=== PATIENT | female | born 1990 ===

== ENCOUNTER 2021-11-28 19:55 | Inpatient (IN) | payer SELFPAY ==
[2021-11-28] MEDS ORDERED: LOPERAMIDE 2 MG CAP PO PRN (23:33)
[2021-11-28] MEDS ORDERED: LIDOCAINE (2%) 20 MG/1 ML VIAL 20 ML MDV INFILTRATI ONE (23:33)
[2021-11-28] MEDS ORDERED: miSOPROStol 200 MCG TAB PR PRN (23:33)
[2021-11-28] MEDS ORDERED: MINERAL OIL 30 ML ORAL LIQD PO PRN (23:33)
[2021-11-28] MEDS ORDERED: ACETAMINOPHEN 325 MG TAB PO PRN (23:33)
[2021-11-28] MEDS ORDERED: OXYTOCIN 10 UNIT/1 ML INJ IM PRN (23:33)
[2021-11-28] MEDS ORDERED: METHYLERGONOVINE MALEATE 0.2 MG/ML VIAL IM PRN (23:33)
[2021-11-28] MEDS ORDERED: BUTORPHANOL 2 MG/1 ML INJ IV PRN ×2 (23:33)
[2021-11-28] MEDS ORDERED: CARBOPROST TROMETHAMINE 250 MCG/1 ML INJ IM PRN (23:33)
[2021-11-28] MEDS ORDERED: ePHEDrine SULFATE 50 MG/1 ML INJ IV PRN (23:33)
[2021-11-28] MEDS ORDERED: TERBUTALINE 1 MG/1 ML INJ SUB-Q PRN (23:33)
[2021-11-28 23:45] LABS: Hematocrit 34.9 % (30.3-42.9); Hemoglobin 11.2 gm/dl (10.1-14.3); Mean Corpuscular HGB Conc 32 % (30-34); Mean Corpuscular Volume 81 fl (79-97); Platelet Count 140 K/mm3 (140-440); Red Blood Count 4.29 M/mm3 (3.65-5.03); Red Cell Distribution Width 16.3 % (13.2-15.2)
[2021-11-28] MEDS ORDERED: OXYTOCIN DRIP 30 UNITS/500 ML BAG IV SCH ×2 (23:45)
--- NOTE | 2021-11-29 00:17 | Ultrasound Report ---
US OB BPP wo non-stress, US OB limited INDICATION / CLINICAL INFORMATION: BP. COMPARISON: None available. FINDINGS: Single live intrauterine . measurements correspond to a gestational age of 4 0 weeks and 3 days. Estimated weight measures 3750 g. BREATHING MOVEMENT = 2 GROSS BODY MOVEMENT = 2 TONE = 2 QUALITATIVE AMNIOTIC FLUID VOLUME = 2 TOTAL BIOPHYSICAL SCORE = 8/8 AMNIOTIC FLUID INDEX (cm) = 10.1 PRESENTATION: Cephalic HEART RATE (beats per minute): 141 IMPRESSION: Single live intrauterine in cephalic presentation. Ultrasound age of 40 weeks a nd 3 days. Estimated weight of 3750 g. No significant abnormality. 1. biophysical profile = 8/8 2. Amniotic fluid index is within normal limits, measuring 10.1 cm. Signer Name: Yevgeniy Trejo MD Signed: 11/29/2021 12:13 AM Workstation Name: [id number]
--- NOTE | 2021-11-29 01:10 | History and Physical Report ---
History of Present Illness Date of examination: 11/28/21 Date of admission: 11/28/2021 Chief complaint: Induction of labor History of present illness: 31-year-old primigravida at 40-3/7 weeks gestation presents to OB triage reporting cramping. There is no leakage of fluid. There was some spotting. There is good movement. The patient was scheduled for induction of labor this evening secondary to being post due date, large for gestational age, and history of polyhydramnios. Biophysical profile performed this evening was 8 out of 8. Estimated weig ht was in the 55th percentile with an amniotic fluid index of 10 cm. Cervical exam was fingertip dilated. In lieu of the patient's cramping and spotting, she is now admitted to labor and delivery for induction of labor. The risks, alternatives, and benefits were explained the patient. She wished to proceed with induction of labor. Past History Past Medical History: no pertinent history Past Surgical History: no surgical history Family/Genetic History: none Social history: no significant social history - Obstetrical History Expected Date of Delivery: 11/25/21 Actual Gestation: 40 Week(s) 4 Day(s) : 1 Para: 0 Medications and Allergies Allergies Allergy/AdvReac Type Severity Reaction Status Date / Time No Known Allergies Allergy Verified 11/28/21 23:36 Active Meds: Active Medications Acetaminophen (Acetaminophen 325 Mg Tab) 650 mg PO Q4H PRN PRN Reason: Pain, Mild (1-3) Butorphanol Tartrate (Butorphanol 2 Mg/1 Ml Inj) 1 mg IV Q2H PRN PRN Reason: Pain, Moderate(4-6) LABOR PAIN Butorphanol Tartrate (Butorphanol 2 Mg/1 Ml Inj) 2 mg IV Q2H PRN PRN Reason: Pain , Severe (7-10) Carboprost Tromethamine (Carboprost Tromethamine 250 Mcg/1 Ml Inj) 250 mcg IM ONCE PRN PRN Reason: Uterine Bleeding Ephedrine Sulfate (Ephedrine Sulfate 50 Mg/1 Ml Inj) 10 mg IV Q2M PRN PRN Reason: Hypotension Fentanyl (Fentanyl 100 Mcg/2 Ml Inj) 100 mcg IV Q2H PRN PRN Reason: Pain,Severe (7-10) LABOR PAIN Oxytocin/Sodium Chloride (Pitocin/Ns 30 Unit/500ml) 30 units in 500 mls @ 2 mls/hr IV TITR KENNY; Protocol Lactated Ringer's (Lactated Ringers) 1,000 mls @ 125 mls/hr IV DIRECT KENNY Oxytocin/Sodium Chloride (Pitocin/Ns 30 Unit/500ml) 30 units in 500 mls @ 40 mls/hr IV TITR KENNY; Protocol Loperamide HCl (Loperamide 2 Mg Cap) 2 mg PO ONCE PRN PRN Reason: give with Hemabate Methylergonovine Maleate (Methylergonovine Maleate 0.2 Mg/Ml Vial) 0.2 mg IM ONCE PRN PRN Reason: Uterine Bleeding Mineral Oil (Mineral Oil 30 Ml Oral Liqd) 30 ml PO QHS PRN PRN Reason: Constipation Misoprostol (Misoprostol 200 Mcg Tab) 800 mcg ME ONCE PRN PRN Reason: Uterine Bleeding Oxytocin (Oxytocin 10 Unit/1 Ml Inj) 10 unit IM ONCE PRN PRN Reason: Uterine Bleeding Terbutaline Sulfate (Terbutaline 1 Mg/1 Ml Inj) 0.25 mg SUB-Q ONCE PRN PRN Reason: Hyperstimulation/Hypertonicity Review of Systems All systems: negative - Vital Signs Vital signs: Vital Signs Pulse BP Pulse Ox 100 H 122/75 98 11/28/21 20:19 11/28/21 20:19 11/28/21 20:19 Temp Pulse Resp BP Pulse Ox 97.4 F L 84 122/75 99 11/28/21 20:39 11/29/21 01:05 11/28/21 20:19 11/29/21 01:05 - Physical Exam Breasts: Positive: normal Cardiovascular: Regular rate Lungs: Positive: Normal air movement Abdomen: Positive: normal appearance Genitourinary (Female): Positive: normal external genitalia, normal perenium Vulva: both: normal Vagina: Positive: normal moisture Uterus: Positive: enlarged Adnexa: both: normal Anus/Rectum: Positive: normal perianal skin Extremities: Positive: normal Deep Tendon Reflex Grade: Normal +2 - Obstetrical FHR: category 1 Cervical Dilatation: 0.5 Cervical Effacement Percentage: 50 station: -3 Uterine Contraction Pattern: Absent Results Result Diagrams: 11/28/21 23:18 Abnormal lab results 11/28/21 Range/Units 23:18 MCH 26 L (28-32) pg RDW 16.3 H (13.2-15.2) % All other labs normal. Ultrasound: report reviewed (Biophysical profile= 02/17. OB ultrasound limited= single live intrauterine . Vertex. Estimated weight is 3750 g. This is in the 55th percentile. Amniotic fluid index is 10.1 cm.) Assessment and Plan - Patient Problems (1) 40 weeks gestation of Current Visit: Yes Status: Acute Plan to address problem: care is up-to-date at [facility]. She had an abnormal 1 hour glucose tolerance test. 3-hour glucose tolerance test was normal. She is GBS negative. (2) Postmaturity , 40-42 weeks gestation Current Visit: Yes Status: Acute Plan to address problem: As this patient is post due date, induction of labor was recommended. (3) Large for gestational age fetus Current Visit: Yes Status: Acute Plan to address problem: Although this patient's record states that her fetus is large for gestational age, ultrasound today revealed that the estimated weight is in the 55th percentile. Hemoglobin A1c is within normal limits today. Accu-Chek is normal. (4) Encounter for induction of labor Current Visit: Yes Status: Acute Plan to address problem: Ripen cervix with oral Cytotec and Cook's catheter.
[2021-11-29] MEDS: miSOPROStol 25 MCG TAB PO SCH ×2 (02:20→06:25)
[2021-11-29] MEDS: fentaNYL 100 MCG/2 ML INJ IV PRN (04:48)
[2021-11-29] MEDS ORDERED: BUPIVACAINE/PF (0.25%) 2.5 MG/ML 10 ML VIAL INFILTRATI ONE (08:05)
[2021-11-29] MEDS ORDERED: ePHEDrine SULFATE 50 MG/1 ML INJ IV PRN (09:00)
--- NOTE | 2021-11-29 09:05 | Anesthesia Consultation ---
Anesthesia Consult and Med Hx Date of service: 11/29/21 - Airway Anesthetic Teeth Evaluation: Poor Mallampati Class: Class II Intubation Access Assessment: Probably Good - Pulmonary Exam CTA: Yes - Cardiac Exam Cardiac Exam: RRR - Pre-Operative Health Status ASA Pre-Surgery Classification: ASA2 Proposed Anesthetic Plan: Epidural - Pulmonary Hx Smoking: No Hx Asthma: No Hx Respiratory Symptoms: No Hx Sleep Apnea: No - Cardiovascular System Hx Hypertension: No - Central Nervous System Hx Seizures: No Hx Back Pain: No Hx Psychiatric Problems: No - Gastrointestinal Hx Gastroesophageal Reflux Disease: No - Endocrine Hx Renal Disease: No Hx Hypothyroidism: No Hx Hyperthyroidism: No - Hematic Hx Anemia: No Hx Sickle Cell Disease: No - Other Systems Hx Alcohol Use: No Hx Substance Use: No Hx Obesity: Yes
--- NOTE | 2021-11-29 09:07 | Progress Note ---
Labor Epidural - Labor Epidural Start Time: 08:20 Stop Time: 08:38 Performed by:: EMETERIO HUGHES Procedure: Patient is requesting a laboring epidural for laboring pain. Patient IDed, H&P reviewed, all questions and concerns were answered, and consent was signed. Timeout was performed at bedside. Patient in sitting position. Sterile prep and drape was performed. [3] ml of 1% lidocaine skin wheal at L[3]- L [4]. 17- gauge Tuohy epidural needle was advanced to loss of resistance with saline technique 8cm x 1attempts. Single dural perforation via 25 guage spinal needle placed through the shaft of Epidural needle. Positive CSF via spinal needle. Negative CSF negative blood via Epidural needle. Epidural catheter advanced to [12] centimeters. [NEGATIVE] Aspiration [NEGATIVE] test dose. Negative Paresthesia. Sterile dressing applied. Patient tolerated procedure.
[2021-11-29] MEDS ORDERED: NALOXONE 2 MG/2 ML INJ IV PRN (09:30)
[2021-11-29] MEDS: fentaNYL-BUPIV 2 MCG/ML-0.125% 200 MCG/100 ML BAG EPIDURAL SCH ×2 (09:48→18:25)
--- NOTE | 2021-11-29 10:57 | Event Note ---
Assumed care of patient at 08:00 today. NAEEM 460/-2/BBCHASE.
[2021-11-29] MEDS: LACTATED RINGERS 1,000 ML IV SCH ×2 (11:05→19:02)
--- NOTE | 2021-11-29 14:04 | Event Note ---
Date: 11/29/21 SVE .
--- NOTE | 2021-11-29 16:21 | Event Note ---
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 Will augment labor with Pitocin. Discussed Pitocin augmentation with patient and she consented to Pitocin augmentation of labor. Informed nurse of need to start Pitocin. Orders put in. Reassuring FHR tracing.
[2021-11-29] MEDS ORDERED: OXYTOCIN DRIP 30 UNITS/500 ML BAG IV SCH (17:00)
--- NOTE | 2021-11-29 17:02 | Progress Note ---
Subjective - Subjective Date of service: 11/29/21 Interval history: AROM CLEAR FLUID cervix 7cm/90/-2 +ve polyhydramnios FHT 130 BPM baseline, moderate variability [place]: Q2 minutes A: active phase P; AROM no complications 7cm start pitocin per protocol expect Maternal/ status reassuring Beronica Monroe MD Objective - Vital Signs Vital Signs: Vital Signs - 12hr 11/29/21 11/29/21 11/29/21 05:01 05:06 05:11 Temperature Pulse Rate 89 88 85 Respiratory Rate Blood Pressure Blood Pressure [Right] O2 Sat by Pulse 97 97 98 Oximetry 11/29/21 11/29/21 11/29/21 05:16 05:21 05:26 Temperature Pulse Rate 85 82 76 Respiratory Rate Blood Pressure Blood Pressure [Right] O2 Sat by Pulse 99 98 99 Oximetry 11/29/21 11/29/21 11/29/21 05:31 05:36 05:41 Temperature Pulse Rate 89 97 H 94 H Respiratory Rate Blood Pressure Blood Pressure [Right] O2 Sat by Pulse 99 99 99 Oximetry 11/29/21 11/29/21 11/29/21 05:46 05:51 05:56 Temperature Pulse Rate 81 85 91 H Respiratory Rate Blood Pressure Blood Pressure [Right] O2 Sat by Pulse 100 99 100 Oximetry 11/29/21 11/29/21 11/29/21 06:01 06:06 06:11 Temperature Pulse Rate 92 H 104 H 94 H Respiratory Rate Blood Pressure Blood Pressure [Right] O2 Sat by Pulse 99 98 98 Oximetry 11/29/21 11/29/21 11/29/21 06:16 06:21 06:26 Temperature Pulse Rate 100 H 85 100 H Respiratory Rate Blood Pressure Blood Pressure [Right] O2 Sat by Pulse 98 98 97 Oximetry 11/29/21 11/29/21 11/29/21 06:31 06:36 06:41 Temperature Pulse Rate 99 H 86 86 Respiratory Rate Blood Pressure Blood Pressure [Right] O2 Sat by Pulse 97 96 97 Oximetry 11/29/21 11/29/21 11/29/21 06:46 06:51 06:56 Temperature Pulse Rate 84 81 82 Respiratory Rate Blood Pressure Blood Pressure [Right] O2 Sat by Pulse 97 97 97 Oximetry 11/29/21 11/29/21 11/29/21 07:01 07:06 07:11 Temperature Pulse Rate 90 90 76 Respiratory Rate Blood Pressure Blood Pressure [Right] O2 Sat by Pulse 97 97 98 Oximetry 11/29/21 11/29/21 11/29/21 07:16 07:21 07:26 Temperature Pulse Rate 83 90 80 Respiratory Rate Blood Pressure Blood Pressure [Right] O2 Sat by Pulse 98 99 98 Oximetry 11/29/21 11/29/21 11/29/21 07:31 07:42 07:43 Temperature 98.7 F Pulse Rate 86 87 86 Respiratory 20 Rate Blood Pressure Blood Pressure 120/76 [Right] O2 Sat by Pulse 98 99 98 Oximetry 11/29/21 11/29/21 11/29/21 07:47 07:52 07:57 Temperature Pulse Rate 94 H 86 91 H Respiratory Rate Blood Pressure 120/76 Blood Pressure [Right] O2 Sat by Pulse 99 98 97 Oximetry 11/29/21 11/29/21 11/29/21 08:02 08:07 08:12 Temperature Pulse Rate 89 91 H 89 Respiratory Rate Blood Pressure Blood Pressure [Right] O2 Sat by Pulse 99 98 97 Oximetry 11/29/21 11/29/21 11/29/21 09:47 09:49 09:51 Temperature Pulse Rate 83 87 78 Respiratory Rate Blood Pressure 105/65 107/68 108/69 Blood Pressure [Right] O2 Sat by Pulse Oximetry 11/29/21 11/29/21 11/29/21 09:52 09:53 09:55 Temperature Pulse Rate 84 90 81 Respiratory Rate Blood Pressure 102/65 107/68 Blood Pressure [Right] O2 Sat by Pulse 100 Oximetry 11/29/21 11/29/21 11/29/21 09:57 09:59 10:02 Temperature Pulse Rate 80 86 77 Respiratory Rate Blood Pressure 112/68 105/63 119/68 Blood Pressure [Right] O2 Sat by Pulse 100 98 Oximetry 11/29/21 11/29/21 11/29/21 10:03 10:05 10:07 Temperature Pulse Rate 82 88 77 Respiratory Rate Blood Pressure 109/64 100/61 Blood Pressure [Right] O2 Sat by Pulse 99 Oximetry 11/29/21 11/29/21 11/29/21 10:08 10:10 10:11 Temperature Pulse Rate 76 103 H 80 Respiratory Rate Blood Pressure 111/66 111/62 109/63 Blood Pressure [Right] O2 Sat by Pulse Oximetry 11/29/21 11/29/21 11/29/21 10:12 10:14 10:15 Temperature Pulse Rate 86 91 H 76 Respiratory Rate Blood Pressure 111/61 111/66 Blood Pressure [Right] O2 Sat by Pulse 98 Oximetry 11/29/21 11/29/21 11/29/21 10:17 10:19 10:21 Temperature Pulse Rate 80 77 75 Respiratory Rate Blood Pressure 116/72 114/72 113/71 Blood Pressure [Right] O2 Sat by Pulse 100 Oximetry 11/29/21 11/29/21 11/29/21 10:22 10:23 10:25 Temperature Pulse Rate 79 82 81 Respiratory Rate Blood Pressure 112/68 105/66 Blood Pressure [Right] O2 Sat by Pulse 99 Oximetry 11/29/21 11/29/21 11/29/21 10:27 10:32 10:37 Temperature Pulse Rate 76 81 85 Respiratory Rate Blood Pressure 117/72 Blood Pressure [Right] O2 Sat by Pulse 100 100 99 Oximetry 11/29/21 11/29/21 11/29/21 10:42 10:47 10:52 Temperature Pulse Rate 85 80 80 Respiratory Rate Blood Pressure Blood Pressure [Right] O2 Sat by Pulse 100 100 100 Oximetry 11/29/21 11/29/21 11/29/21 10:57 11:01 11:02 Temperature Pulse Rate 83 80 85 Respiratory Rate Blood Pressure 119/69 Blood Pressure [Right] O2 Sat by Pulse 100 100 Oximetry 11/29/21 11/29/21 11/29/21 11:07 11:12 11:17 Temperature Pulse Rate 97 H 91 H 76 Respiratory Rate Blood Pressure Blood Pressure [Right] O2 Sat by Pulse 100 100 100 Oximetry 11/29/21 11/29/21 11/29/21 11:22 11:27 11:31 Temperature Pulse Rate 87 86 84 Respiratory Rate Blood Pressure 118/66 Blood Pressure [Right] O2 Sat by Pulse 100 100 Oximetry 11/29/21 11/29/21 11/29/21 11:32 11:37 11:42 Temperature Pulse Rate 83 79 86 Respiratory Rate Blood Pressure Blood Pressure [Right] O2 Sat by Pulse 99 99 100 Oximetry 11/29/21 11/29/21 11/29/21 11:47 11:52 11:57 Temperature Pulse Rate 85 79 83 Respiratory Rate Blood Pressure Blood Pressure [Right] O2 Sat by Pulse 100 100 100 Oximetry 11/29/21 11/29/21 11/29/21 12:01 12:02 12:07 Temperature Pulse Rate 75 75 76 Respiratory Rate Blood Pressure 123/76 Blood Pressure [Right] O2 Sat by Pulse 100 100 Oximetry 11/29/21 11/29/21 11/29/21 12:12 12:17 12:22 Temperature Pulse Rate 77 77 82 Respiratory Rate Blood Pressure Blood Pressure [Right] O2 Sat by Pulse 99 99 100 Oximetry 11/29/21 11/29/21 11/29/21 12:27 12:31 12:32 Temperature Pulse Rate 84 83 85 Respiratory Rate Blood Pressure 113/71 Blood Pressure [Right] O2 Sat by Pulse 99 99 Oximetry 11/29/21 11/29/21 11/29/21 12:37 12:42 12:47 Temperature Pulse Rate 97 H 97 H 86 Respiratory Rate Blood Pressure Blood Pressure [Right] O2 Sat by Pulse 100 100 99 Oximetry 11/29/21 11/29/21 11/29/21 12:52 12:57 13:00 Temperature Pulse Rate 84 88 80 Respiratory Rate Blood Pressure 111/70 Blood Pressure [Right] O2 Sat by Pulse 100 99 Oximetry 11/29/21 11/29/21 11/29/21 13:02 13:07 13:12 Temperature Pulse Rate 88 84 84 Respiratory Rate Blood Pressure Blood Pressure [Right] O2 Sat by Pulse 99 100 99 Oximetry 11/29/21 11/29/21 11/29/21 13:17 13:22 13:27 Temperature Pulse Rate 103 H 81 87 Respiratory Rate Blood Pressure Blood Pressure [Right] O2 Sat by Pulse 99 99 99 Oximetry 11/29/21 11/29/21 11/29/21 13:31 13:32 13:37 Temperature Pulse Rate 97 H 109 H 85 Respiratory Rate Blood Pressure 124/72 Blood Pressure [Right] O2 Sat by Pulse 93 100 Oximetry 11/29/21 11/29/21 11/29/21 13:42 13:47 13:52 Temperature Pulse Rate 93 H 83 87 Respiratory Rate Blood Pressure Blood Pressure [Right] O2 Sat by Pulse 99 99 100 Oximetry 11/29/21 11/29/21 11/29/21 13:57 14:01 14:02 Temperature Pulse Rate 98 H 80 84 Respiratory Rate Blood Pressure 117/73 Blood Pressure [Right] O2 Sat by Pulse 100 98 Oximetry 11/29/21 11/29/21 11/29/21 14:07 14:12 14:17 Temperature Pulse Rate 100 H 86 95 H Respiratory Rate Blood Pressure Blood Pressure [Right] O2 Sat by Pulse 99 99 98 Oximetry 11/29/21 11/29/21 11/29/21 14:22 14:27 14:31 Temperature Pulse Rate 94 H 86 82 Respiratory Rate Blood Pressure 128/76 Blood Pressure [Right] O2 Sat by Pulse 99 100 Oximetry 11/29/21 11/29/21 11/29/21 14:32 14:37 14:42 Temperature Pulse Rate 87 86 81 Respiratory Rate Blood Pressure Blood Pressure [Right] O2 Sat by Pulse 100 100 100 Oximetry 11/29/21 11/29/21 11/29/21 14:47 14:52 14:57 Temperature Pulse Rate 85 85 78 Respiratory Rate Blood Pressure Blood Pressure [Right] O2 Sat by Pulse 100 100 99 Oximetry 11/29/21 11/29/21 11/29/21 15:02 15:07 15:12 Temperature Pulse Rate 83 83 88 Respiratory Rate Blood Pressure 118/76 Blood Pressure [Right] O2 Sat by Pulse 99 99 100 Oximetry 11/29/21 11/29/21 11/29/21 15:17 15:22 15:27 Temperature Pulse Rate 83 88 85 Respiratory Rate Blood Pressure Blood Pressure [Right] O2 Sat by Pulse 99 100 99 Oximetry 11/29/21 11/29/21 11/29/21 15:31 15:32 15:37 Temperature Pulse Rate 77 87 87 Respiratory Rate Blood Pressure 125/72 Blood Pressure [Right] O2 Sat by Pulse 98 97 Oximetry 11/29/21 11/29/21 11/29/21 15:42 15:47 15:52 Temperature Pulse Rate 88 105 H 94 H Respiratory Rate Blood Pressure Blood Pressure [Right] O2 Sat by Pulse 98 99 99 Oximetry 11/29/21 11/29/21 11/29/21 15:57 16:02 16:07 Temperature Pulse Rate 90 88 87 Respiratory Rate Blood Pressure 120/80 Blood Pressure [Right] O2 Sat by Pulse 99 100 98 Oximetry 11/29/21 11/29/21 11/29/21 16:12 16:17 16:22 Temperature Pulse Rate 91 H 98 H 92 H Respiratory Rate Blood Pressure Blood Pressure [Right] O2 Sat by Pulse 99 98 99 Oximetry 11/29/21 11/29/21 11/29/21 16:27 16:31 16:32 Temperature Pulse Rate 97 H 88 91 H Respiratory Rate Blood Pressure 131/80 Blood Pressure [Right] O2 Sat by Pulse 99 99 Oximetry 11/29/21 11/29/21 11/29/21 16:37 16:42 16:47 Temperature Pulse Rate 93 H 96 H 101 H Respiratory Rate Blood Pressure Blood Pressure [Right] O2 Sat by Pulse 99 99 99 Oximetry 11/29/21 11/29/21 11/29/21 16:52 16:55 16:57 Temperature Pulse Rate 92 H 84 103 H Respiratory Rate Blood Pressure Blood Pressure [Right] O2 Sat by Pulse 99 93 99 Oximetry - Labs Labs: Abnormal Labs 11/28/21 23:18 MCH 26 L RDW 16.3 H Laboratory Results - last 24 hr 11/28/21 11/28/21 11/29/21 23:14 23:18 01:03 WBC 7.9 RBC 4.29 Hgb 11.2 Hct 34.9 MCV 81 MCH 26 L MCHC 32 RDW 16.3 H Plt Count 140 POC Glucose 81 Hemoglobin A1c SARS-CoV-2 (PCR) Blood Type B POSITIVE Antibody Screen Negative 11/29/21 11/29/21 03:09 10:32 WBC RBC Hgb Hct MCV MCH MCHC RDW Plt Count POC Glucose Hemoglobin A1c 5.5 SARS-CoV-2 (PCR) Negative Blood Type Antibody Screen
[2021-11-30] MEDS ORDERED: LIDOCAINE (2%) 20 MG/1 ML VIAL 20 ML MDV INFILTRATI ONE (01:48)
[2021-11-30] MEDS: fentaNYL 100 MCG/2 ML INJ IV PRN (02:14)
[2021-11-30] MEDS ORDERED: WITCH HAZEL/ GLYCERIN PAD TP PRN (03:15)
[2021-11-30] MEDS ORDERED: MAGNESIUM HYDROXIDE (MOM) ORAL LIQD UDC PO PRN (03:15)
[2021-11-30] MEDS ORDERED: BENZOCAINE/MENTHOL 20/0.5% TOP SPRAY 56 GM TP PRN (03:15)
[2021-11-30] MEDS ORDERED: HYDROcodone/ACETAMINOPHEN 5-325 MG TAB PO PRN (03:15)
[2021-11-30] MEDS ORDERED: LANOLIN/ZINC/DIMETHICONE (LANSINOH) 7 GM TP PRN ×2 (03:15)
--- NOTE | 2021-11-30 03:24 | Procedure Note ---
OB Delivery Note - Delivery Date of Delivery: 11/30/21 Surgeon: CHANTELL HAIR Estimated blood loss: other (110 cc) - Vaginal Delivery presentation: vertex Delivery position: OA Intrapartum events: none Delivery induction: misoprostol Delivery augmentation: pitocin Delivery monitor: external FHT, external uterine Route of delivery: Delivery placenta: spontaneous Delivery cord: 3 umbilical vessels Delivery laceration: 2nd degree Delivery repair: vicryl Anesthesia: local, epidural Delivery comments: Spontaneous vaginal delivery at 02:00 of liveborn male weighing 9 lb. 5 oz. over 2nd degree perineal laceration with apgars of 7/8. was atraumatic; baby was placed on mom's chest immediately after delivery. Spo ntaneous cry and respirations. Baby was dried with warm blankets and suctioned with bulb syringe. 3 vessel cord double clamped and cut. Baby taken to radiant warmer for further suctioning. Spontaneous delivery of intact placenta and membranes at 02:05. Pitocin to IV fluids after delivery of placenta. QBL 110 cc. Fundus firm and midline. 2nd degree perineal laceration with right labial extension repaired with 2-0 vicryl in usual sterile fashion. Vaginal sweep negative. Sponge count correct. Mother and baby stable in birthing room.
[2021-11-30] MEDS: IBUPROFEN 600 MG TAB PO SCH ×4 (06:25→23:16)
[2021-11-30] MEDS: DOCUSATE SODIUM 100 MG CAP PO SCH ×3 (07:14→23:16)
--- NOTE | 2021-11-30 13:59 | Post Anesthesia Evaluation ---
- Post Anesthesia Evaluation Patient Participated: Yes Airway Patent: Yes Stable Respiratory Function: Yes Nausea/Vomiting: No Temp > 96.8F: Yes Pain Manageable: Yes Adequeate Hydration: Yes Anesthesia Complications: No Block Receding Appropriately: Yes Patient on Ventilator: No
[2021-11-30 18:02] LABS: Hematocrit 32.4 % (30.3-42.9); Hemoglobin 10.8 gm/dl (10.1-14.3)
[2021-12-01] MEDS: IBUPROFEN 600 MG TAB PO SCH (06:03)
--- NOTE | 2021-12-01 07:17 | Progress Note ---
Subjective - Subjective Date of service: 12/01/21 Interval history: day #1 Status post Acute complaint Physical exam benign, lochia mild to moderate fundus firm Routine care Beronica Monroe MD Patient reports: appetite normal, voiding normally, pain well controlled, ambulating normally [place]: doing well Objective - Vital Signs Latest vital signs: Vital Signs Temp Pulse Resp BP BP Pulse Ox Pulse Ox 12/01/21 00:00 98.4 F 78 16 115/79 11/30/21 20:27 98.0 F 100 H 18 122/55 92 11/30/21 19:30 100 11/30/21 16:17 97.9 F 102 H 20 119/84 99 11/30/21 12:51 97.8 F 90 20 104/55 96 11/30/21 08:00 98.7 F 80 20 107/55 96 98 Intake and Output 11/30/21 11/30/21 12/01/21 15:59 23:59 07:59 Intake Total 560 560 300 Output Total 1500 700 Balance -940 -140 300 Intake: Oral 560 560 Intake, Free Water 300 Output: Urine 1500 700 Void 1500 700 Other: Total, Intake Amount 240 240 Total, Output Amount 600 300 # Voids Void 1 - Exam Breasts: Present: deferred Cardiovascular: Present: Regular rate Lungs: Present: Clear to auscultation Abdomen: Present: normal appearance, normal bowel sounds Uterus: Present: fundal height below umbilicus Extremities: Present: normal Deep Tendon Reflex Grade: Normal +2
--- NOTE | 2021-12-01 07:18 | Discharge Summary ---
Providers - Providers Date of Admission: 11/28/21 22:33 Date of discharge: 12/02/21 Attending physician: MOISES LEE MD Primary care physician: MOISES LEE MD Hospitalization Delivery: Discharge diagnosis: IUP at term delivered Condition at discharge: Stable Disposition: 01 HOME / SELF CARE / HOMELESS Plan - Provider Discharge Summary Activity: no sex for 6 weeks Diet: routine Additional instructions: [] Smoking cessation referral if applicable(refer to patient education folder for contact #) [] Refer to [facility]'s [facility] Booklet Call your doctor immediately for: * Fever > 100.5 * Heavy vaginal bleeding ( >1 pad per hour) * Severe persistent headache * Shortness of breath * Reddened, hot, painful area to leg or breast * Drainage or odor from incision. * Keep incision clean and dry at all times and follow doctor's instructions regarding bathing/showering - Follow up plan Follow up: MOISES LEE MD [Primary Care Provider] - 6 Weeks
[2021-12-01] MEDS: DOCUSATE SODIUM 100 MG CAP PO SCH (10:51)
[2021-12-01 15:31] VITALS: BP 107/40
== END 2021-12-01 14:34 | disposition home or self-care (01) | DRG 807 ==
LOC: TRG 19:55 → APU 19:59 → LD 22:33 → TRG 22:33 → LD 23:55 → OB 11-30 05:30
PROVIDERS: ADMIT Obstetrics & Gynecology Gynecology; ATTEND Obstetrics & Gynecology Gynecology
PROC: 10E0XZZ Delivery of Products of Conception, External Approach (ICD-10-PCS; principal; 2021-11-30)
PROC: 0KQM0ZZ Repair Perineum Muscle, Open Approach (ICD-10-PCS; 2021-11-30)
PROC: 3E0R3BZ Introduction of Anesthetic Agent into Spinal Canal, Percutaneous Approach (ICD-10-PCS; 2021-11-30)
PROC: 00HU33Z Insertion of Infusion Device into Spinal Canal, Percutaneous Approach (ICD-10-PCS; 2021-11-30)
DX: O48.0 Post-term pregnancy (principal); Z37.0 Single live birth; O99.214 Obesity complicating childbirth; O40.3XX0 Polyhydramnios, third trimester, not applicable or unspecified; O36.63X0 Maternal care for excessive fetal growth, third trimester, not applicable or unspecified; Z3A.40 40 weeks gestation of pregnancy; Z20.822 Contact with and (suspected) exposure to COVID-19; O70.1 Second degree perineal laceration during delivery
CPT/HCPCS: 36415; 59025; 76815; 76816; 76819; 82962; 83036; 85014; 85018; 85027; 86850; 86900; 86901; 96360; G0378; J3490; J0595; J2590; J3010; J7120; U0003